=== PATIENT | female | born 1990 | race Caucasian/White ===

== ENCOUNTER 2017-05-30 17:39 | Emergency (ER) | payer MEDICAID, OTHER ==
[~2017-05-30] VITALS: Ht 154.9 cm; Wt 67.0 kg
[~2017-05-30 17:39] MED LIST: ACET500C5 PO; CYCL-319 PO; HYDR-3498 PO; IBUP-1542 PO
[2017-05-30 17:45] VITALS: Ht 154.9 cm; Wt 67.0 kg
[2017-05-30] MEDS ORDERED: SOD CHLORIDE 0.9% 1,000 ML IV STA (18:14)
[2017-05-30] MEDS ORDERED: ACETAMINOPHEN 325 MG TAB PO ONE (18:30)
[2017-05-30 19:56] LABS: ADD UMIC YES; UR ASCORBIC ACID NEGATIVE (NEGATIVE); UR BACTERIA FEW /HPF (NONE SEEN); UR BILIRUBIN (Dip) NEGATIVE (NEGATIVE); UR BLOOD (Dip) 3+ mg/dL (NEGATIVE); UR CLARITY CLEAR (CLEAR); UR COLOR YELLOW (YELLOW); UR GLUCOSE (Dip) NEGATIVE (NEGATIVE); UR KETONES (Dip) 1+ mg/dL (NEGATIVE); UR LEUKOCYTE ESTERASE (Dip) 1+ Leu/ul (NEGATIVE); UR NITRITE (Dip) NEGATIVE (NEGATIVE); UR RBC 14 /HPF (0-5); UR TOTAL PROTEIN (Dip) NEGATIVE (NEGATIVE); UR UROBILINOGEN (Dip) NEGATIVE (NEGATIVE)
[2017-05-30 20:11] LABS: BASOPHILS % 0.1 % (0.0-2.0); EOSINOPHILS % 0.2 % (0.0-7.0); HEMATOCRIT 39.9 % (37.0-47.0); HEMOGLOBIN 13.8 g/dl (12.0-16.0); LYMPHOCYTES # 1.2 10^3/ul (0.8-2.9); LYMPHOCYTES % 8.1 % (15.0-51.0); MEAN CORPUSCULAR HEMOGLOBIN 31.4 pg (29.0-33.0); MEAN CORPUSCULAR HGB CONC 34.6 g/dl (32.0-37.0); MEAN CORPUSCULAR VOLUME 90.9 fl (82.0-101.0); MEAN PLATELET VOLUME 10.3 fl (7.4-10.4); MONOCYTE # 0.8 10^3/ul (0.3-0.9); MONOCYTES % 5.3 % (0.0-11.0); NEUTROPHIL # 12.9 10^3/ul (1.6-7.5); NEUTROPHILS % 85.8 % (39.0-77.0); PLATELET COUNT 366 10^3/UL (140-415); RED BLOOD COUNT 4.39 10^6/ul (4.20-5.40)
[2017-05-30 20:29] LABS: ALBUMIN 4.4 g/dl (3.3-4.9); ALBUMIN/GLOBULIN RATIO 1.02; BILIRUBIN,INDIRECT 0.6 mg/dl (0-1.1); BILIRUBIN,TOTAL 0.6 mg/dl (0.2-1.3); CALCIUM 9.7 mg/dl (8.4-10.2); CREATININE 0.74 mg/dl (0.44-1.00); POTASSIUM 3.6 mmol/L (3.5-5.1); TOTAL PROTEIN 8.7 g/dl (6.1-8.1)
[2017-05-30 20:55] VITALS: TEMP 101.2
[2017-05-30] MEDS ORDERED: CEFTRIAXONE 1 GM/50 ML (PMX) 50 ML IVPB ONE (21:00)
[2017-05-30] MEDS ORDERED: KETOROLAC 30 MG INJ IV ONE (21:15)
[2017-05-30] MEDS ORDERED: IBUP-1542 PO (22:14)
[2017-05-30] MEDS ORDERED: CIPR500T4 PO (22:14)
--- NOTE | 2017-05-30 22:18 | ERD ---
ER Documentation Chief Complaint Date/Time DATE: 05/30/17 TIME: 22:16 Chief Complaint abdominal pain,fever and dysuria x 2 days HPI This 27-year-old female presents with a 2 day history of dysuria, fever and right-sided flank pain. She denies any vomiting. She has a right lower quadrant abdominal pain. Patient denies , vaginal discharge or bleeding. Denies previous history of kidney infection or UTI. ROS All systems reviewed and are negative except as per history of present illness. Medications Home Meds Active Scripts Ibuprofen* (Motrin*) 600 Mg Tab, 600 MG PO Q6, #20 TAB Prov:ANTELMO MIRANDA MD 05/30/17 Ciprofloxacin Hcl* (Ciprofloxacin Hcl*) 500 Mg Tablet, 500 MG PO BID for 10 Days , TAB Prov:ANTELMO MIRANDA MD 05/30/17 Cyclobenzaprine Hcl* (Cyclobenzaprine Hcl*) 10 Mg Tablet, 10 MG PO TID for MUSCLE SPASMS, #15 TAB Prov:ALEXANDRA FONTANEZ NP 01/18/16 Hydrocodone Bit-Acetaminophen* (Galt*) 5-325 Mg Tab, 1 TAB PO Q6 Y for PAIN, # 20 TAB Prov:ALEXANDRA FONTANEZ NP 01/18/16 Ibuprofen* (Motrin*) 600 Mg Tab, 600 MG PO Q6H Y for PAIN AND OR ELEVATED TEMP, #30 TAB Prov:ALEXANDRA FONTANEZ NP 01/18/16 Reported Medications Acetaminophen* (Tylophen*) Unknown Strength Capsule, PO Q6H Y for PAIN AND OR ELEVATED TEMP, #20 CAP 01/18/16 Allergies Allergies: Coded Allergies: No Known Allergy (Verified Allergy, Unknown, 02/13/07) PMhx/Soc History of Surgery: Yes (c/s x1) Anesthesia Reaction: No Hx Respiratory Disorders: Yes (asthma) Hx Alcohol Use: No Hx Substance Use: No Hx Tobacco Use: No Smoking Status: Never smoker Physical Exam Vitals Vital Signs Date Time Temp Pulse Resp B/P Pulse Ox O2 Delivery O2 Flow Rate FiO2 05/30/17 20:55 101.2 05/30/17 17:45 103.6 146 20 137/70 97 Physical Exam Const: [], [id number]. Head: Atraumatic Eyes: Normal Conjunctiva ENT: Normal External Ears, Nose and Mouth. Neck: Full range of motion..~ No meningismus. Resp: Clear to auscultation bilaterally Cardio: Regular rate and rhythm, no murmurs Abd: Soft, non tender, non distended. Normal bowel sounds no tenderness at McBurney's point no Crouch sign. Skin: No petechiae or rashes Back: No midline tenderness. Mild right midabdominal tenderness. No gross flank pain. Ext: No cyanosis, or edema Neur: Awake and alert Psych: Normal Mood and Affect Result Diagram: 05/30/17192905/30/171929 Results 24 hrs Laboratory Tests Test 05/30/17 19:05 05/30/17 19:30 Urine Color YELLOW Urine Clarity CLEAR Urine pH 7.0 Urine Specific [employer] 1.010 Urine Ketones 1+mg/dL Urine Nitrite NEGATIVEmg/dL Urine Bilirubin NEGATIVEmg/dL Urine Urobilinogen NEGATIVEmg/dL Urine Leukocyte Esterase 1+Pinky/ul Urine Microscopic RBC 14/HPF Urine Microscopic WBC 57/HPF Urine Bacteria FEW/HPF Urine Hemoglobin 3+mg/dL Urine Glucose NEGATIVEmg/dL Urine Total Protein NEGATIVEmg/dl Urine Test NEGATIVE White Blood Count 15.010^3/ul Red Blood Count 4.3910^6/ul Hemoglobin 13.8g/dl Hematocrit 39.9% Mean Corpuscular Volume 90.9fl Mean Corpuscular Hemoglobin 31.4pg Mean Corpuscular Hemoglobin Concent 34.6g/dl Red Cell Distribution Width 13.0% Platelet Count 80717^3/UL Mean Platelet Volume 10.3fl Neutrophils % 85.8% Lymphocytes % 8.1% Monocytes % 5.3% Eosinophils % 0.2% Basophils % 0.1% Nucleated Red Blood Cells % 0.0/100WBC Neutrophils # 12.910^3/ul Lymphocytes # 1.210^3/ul Monocytes # 0.810^3/ul Eosinophils # 0.010^3/ul Basophils # 0.010^3/ul Nucleated Red Blood Cells # 0.010^3/ul Sodium Level 138mmol/L Potassium Level 3.6mmol/L Chloride Level 101mmol/L Carbon Dioxide Level 26mmol/L Anion Gap 15 Blood Urea Nitrogen 8mg/dl Creatinine 0.74mg/dl Glucose Level 99mg/dl Calcium Level 9.7mg/dl Total Bilirubin 0.6mg/dl Direct Bilirubin 0.00mg/dl Indirect Bilirubin 0.6mg/dl Aspartate Amino Transf (AST/SGOT) 18IU/L Alanine Aminotransferase (ALT/SGPT) 28IU/L Alkaline Phosphatase 88IU/L Total Protein 8.7g/dl Albumin 4.4g/dl Globulin 4.30g/dl Albumin/Globulin Ratio 1.02 Lipase 27U/L Current Medications Medications (Trade) Dose Ordered Sig/Tiffanie Route PRN Reason Start Time Stop Time Status Last Admin Dose Admin Sodium Chloride (NS) 1,000 ml @ 1,000 mls/hr Q1H STAT IV 05/30/17 18:14 05/30/17 19:13 DC 05/30/17 19:40 Acetaminophen 650 mg 650 mg ONCE ONCE PO 05/30/17 18:30 05/30/17 18:31 DC 05/30/17 19:27 Ceftriaxone Sodium (Rocephin) 50 ml @ 100 mls/hr ONCE ONCE IVPB 05/30/17 21:00 05/30/17 21:29 DC 05/30/17 21:55 Ketorolac Tromethamine (Toradol) 30 mg ONCE ONCE IV 05/30/17 21:15 05/30/17 21:16 DC Procedures/MDM Trace hemoglobin leukocytes and white blood cells. Is negative. GC shows leukocytes count of 15. CMP is normal. Patient was given 1 L normal saline IV , Tylenol for fever, Rocephin 1 g IV and 1 L normal saline as well as Toradol 30 mg IV. Patient felt better after observation treatment. Patient has signs of UTI and fever and likely pyelonephritis without evidence of renal failure or signs of appendicitis, patient for septic stone low. Patient will be treated with Cipro for fever control and fluids and primary care follow-up and return precautions. The patient was stable with no new complaints during the ER course. Clinically, there is no current evidence to suggest meningitis, sepsis, acute abdomen, pneumonia, acute coronary syndrome, pulmonary embolism, or any other emergent condition appearing to require further evaluation or hospitalization. The patient should certainly return for any new or worsening symptoms per the aftercare instructions. They should otherwise follow-up with her primary care doctor for reevaluation this week. Departure Diagnosis: Primary Impression: UTI (urinary tract infection) Urinary tract infection type: acute cystitis Hematuria presence: without hematuria Qualified Code: N30.00 - Acute cystitis without hematuria Additional Impression: Abdominal pain Abdominal location: right upper quadrant Qualified Code: R10.11 - Right upper quadrant abdominal pain Condition: Stable Patient Instructions: Fever Control (Adult), Pyelonephritis, Female (Adult) Additional Instructions: Superior to be due from a kidney infection. Drink plenty fluids at home. Recheck for fever over additional 48 hours, sooner for vomiting, worsening pain , new worsening symptoms. Follow-up with primary care doctor this week. ANTELMO MIRANDA MD May 30, 2017 22:18
== END 2017-05-30 22:36 | disposition home or self-care (01) ==
LOC: FTE 17:39
DX: N30.00 Acute cystitis without hematuria (principal); J45.909 Unspecified asthma, uncomplicated
CPT/HCPCS: 36415; 80053; 81001; 83690; 84703; 85025; 87086; 96374; 96375; J0696; J1885; J7030; Z7502; Z7610